=== PATIENT | male | born 1950 | race Native Hawaiian/Other Pacific Islander ===

== ENCOUNTER 2017-12-14 11:53 | Emergency (ER) | payer OTHER ==
[~2017-12-14] VITALS: Ht 167.6 cm; Wt 108.0 kg
[2017-12-14 12:09] VITALS: BP 124/66; TEMP 99.9
[2017-12-14 12:49] LABS: POTASSIUM 3.8 mmol/L (3.6-5.2)
[2017-12-14 13:17] LABS: PLATELET COUNT 231 K/uL (142-355)
== END 2017-12-14 15:02 | disposition home or self-care (01) ==
LOC: ED 11:53
DX: J06.9 Acute upper respiratory infection, unspecified (principal)
CPT/HCPCS: 36415; 80053; 85027; 87081; 87804; 87880; 96372; 99283; J0696